=== PATIENT | female | born 1970 ===

== ENCOUNTER 2017-02-25 15:15 | Emergency (ER) | payer OTHER ==
[2017-02-25 15:19] VITALS: BMI 28.3
--- NOTE | 2017-02-25 15:53 | C.PDOC ---
History Of Present Illness 46 year old female with no significant PMHx presents to the ED with complaints of urinary frequency and dysuria for 5 days. Patient reports an episode of hematuria today which prompted visit. Patient also notes lower abdominal pain and mild back pain. Patient denies fever, chills, nausea, vomiting, diarrhea, vaginal discharge, or other complaints at this time. Time Seen by Provider: 02/25/17 15:26 Chief Complaint (Nursing): Female Genitourinary History Per: Patient History/Exam Limitations: no limitations Onset/Duration Of Symptoms: Days (5 days ), Worse Since (today) Current Symptoms Are (Timing): Still Present Quality Of Discomfort: "Pain" Associated Symptoms: denies: Fever, Chills, Nausea, Vomiting, Diarrhea Recent travel outside of the [place]: No Abnormal Vaginal Bleeding: No Past Medical History Reviewed: Historical Data, Nursing Documentation, Vital Signs Vital Signs: Last Vital Signs Temp 98.1 F 02/25/17 16:47 Pulse 87 02/25/17 16:47 Resp 17 02/25/17 16:47 BP 121/74 02/25/17 16:47 Pulse Ox 100 02/25/17 16:47 Surgical History: Cholecystectomy Family History: States: Unknown Family Hx - Social History Hx Alcohol Use: No Hx Substance Use: No - Immunization History Hx Tetanus Toxoid Vaccination: No Hx Influenza Vaccination: Yes Hx Pneumococcal Vaccination: No Review Of Systems Constitutional: Negative for: Fever, Chills Gastrointestinal: Positive for: Abdominal Pain. Negative for: Nausea, Vomiting , Diarrhea Genitourinary: Positive for: Dysuria, Frequency, Hematuria. Negative for: Vaginal Discharge Musculoskeletal: Positive for: Back Pain Physical Exam - Physical Exam Appears: Non-toxic, No Acute Distress Skin: Warm, Dry, No Rash Head: Atraumatic, Normacephalic, No Tenderness Eye(s): bilateral: Normal Inspection, PERRL, EOMI Oral Mucosa: Moist Neck: Supple Chest: Symmetrical, No Deformity Cardiovascular: Rhythm Regular, No Murmur Respiratory: No Rales, No Rhonchi, No Wheezing, Other (clear to auscultation bilaterally ) Gastrointestinal/Abdominal: Soft, Tenderness (suprapubic), No Distention, No Guarding, No Rebound Back: No CVA Tenderness Neurological/Psych: Oriented x3, Normal Speech, Normal Cognition ED Course And Treatment - Laboratory Results Urine POC: Negative O2 Sat by Pulse Oximetry: 99 (RA) Pulse Ox Interpretation: Normal Progress Note: Labs were ordered. Medical Decision Making Medical Decision Making: pt with dysuria and frequency z 5 days with hematuria today, no cva tenderness, tx for uti. Disposition Counseled Patient/Family Regarding: Diagnosis, Need For Followup, Rx Given - Disposition Referrals: [facility] [Outside] [facility] [Outside] Disposition: HOME/ ROUTINE Disposition Time: 16:31 Condition: STABLE Additional Instructions: [place] los antibiticos segn lo prescrito hasta que se complete. [place] pridium seg n lo prescrito; nolan medicamento hace que tus lgrimas, saliva y secreciones justin de color naranja. No use lentes de contacto, se tiern de naranja. No m s agua y jugo de arndano. Seguimiento en la clnica mdica la prxima semana. Regrese a la brittany de emergencias por cualquier empeoramiento de los sntomas. Take antibiotics as prescribed until completed. Take pridium as prescribed; this medicine makes your tears, saliva and secretions orange. Do not wear contact lenses, they will be stained orange. Drink increased water and cranberry juice. Follow up in medical clinic next week,. Return to ER for any worsening symptoms. Prescriptions: Ciprofloxacin HCl [Cipro] 500 mg PO BID #10 tablet Phenazopyridine HCl [Pyridium] 200 mg PO TID #5 tablet Instructions: Urinary Tract Infection in Women (ED) Forms: Gen Discharge Inst Setswana, [employer] (Setswana) Print Language: KINYARWANDA - Clinical Impression Clinical Impression: UTI (urinary tract infection) - PA / [employer] / Resident Statement MD/DO has reviewed & agrees with the documentation as recorded. - Scribe Statement The provider has reviewed the documentation as recorded by the Scribe Maria A Drake All medical record entries made by the Scribe were at my direction and personally dictated by me. I have reviewed the chart and agree that the record accurately reflects my personal performance of the history, physical exam, medical decision making, and the department course for this patient. I have also personally directed, reviewed, and agree with the discharge instructions and disposition.
[2017-02-25 16:24] LABS: SQUAMOUS EPITHIAL < 1 /hpf (0-5); URINE BACTERIA FEW (<OCC); URINE BILIRUBIN NEGATIVE (NEGATIVE); URINE BLOOD 2+ (NEGATIVE); URINE CLARITY Hazy (Clear); URINE COLOR Yellow (YELLOW); URINE GLUCOSE (UA) NORMAL (Normal); URINE LEUKOCYTE ESTERASE 3+ Leu/uL (Negative); URINE NITRATE NEGATIVE (NEGATIVE); URINE PROTEIN 1+ mg/dL (NEGATIVE); URINE UROBILINOGEN NORMAL mg/dL (0.2-1.0); WBC CLUMPS FEW /hpf
[2017-02-25 16:48] VITALS: BP 121/74; PULSE 87; RESP 17; TEMP 98.1
[2017-02-25 21:32] VITALS: O2SAT 99
== END 2017-02-25 16:47 | disposition home or self-care (01) ==
LOC: C.ER 15:15
DX: N39.0 Urinary tract infection, site not specified (principal)